=== PATIENT | female | born 1990 | race Caucasian/White ===

== ENCOUNTER 2018-06-25 13:34 | Emergency (ER) | payer MEDICAID ==
--- NOTE | 2018-06-25 13:44 | ER Report ---
History and Physical Time Seen By MD: 13:44 Hx. of Stated Complaint: patient states has a hemorrhoid that has been giving her problems since the weekend, patient states it is actively bleeding, had a "period size" amount in underwear when she woke up. HPI/ROS CHIEF COMPLAINT: Hemorrhoids HISTORY OF PRESENT ILLNESS: This is a 28 year female presents to the emergency department for hemorrhoids. Patient states that she's had intermittent problems with hemorrhoids since her son was born proximally 5 years ago. The patient states that over the last weekend she's had increased hemorrhoid pain, so much so that she is unable to sit comfortably. Patient states that she did see her PCP today they did make referral to Dr. Fowler's office, however she is unable to get into see him until at least August. Patient appears very uncomfortable. No fevers or chills. No nausea or vomiting. No chest pain or shortness of breath. REVIEW OF SYSTEMS: Respiratory: No cough, no dyspnea. Cardiovascular: No chest pain, no palpitations. Gastrointestinal: As above. Musculoskeletal: No back pain. Allergies: Coded Allergies: No Known Drug Allergies (Unverified , 06/25/18) Home Meds Reported Medications Medroxyprogesterone Acet 150 Mg (DEPO-PROVERA 150 MG) 150 Mg/1 Ml Disp.syrin, 150 MG IM [id number], DIS.SYR EVERY 3 MONTHS 06/25/18 Past Medical/Surgical History The patient has a past medical and surgical history of hemorrhoids. Hx Alcohol Use: No Constitutional Vital Sign - Last 24 Hours 06/25/18 06/25/18 06/25/18 06/25/18 13:36 13:49 14:00 14:04 Temp 97.7 Pulse 78 76 91 Resp 20 B/P (MAP) 132/86 110/73 (85) Pulse Ox 96 98 91 O2 Delivery Room Air Physical Exam General Appearance: The patient is alert, has no immediate need for airway protection and no current signs of toxicity. Eyes: Pupils equal and round no injection. Respiratory: Chest is non tender, lungs are clear to auscultation. Cardiac: regular rate and rhythm. Gastrointestinal: Abdomen is soft and non tender, no masses, bowel sounds normal. There is about a large left-sided hemorrhoid, red however does not appear to be thrombosed, nothing that would require draining. No blood noted at this time. Musculoskeletal: Neck: Neck is supple and non tender. Extremities have full range of motion and are non tender. Skin: No rashes or lesions. DIFFERENTIAL DIAGNOSIS: After history and physical exam differential diagnosis was considered for hemorrhoid. Medical Decision Making ED Course/Re-evaluation ED Course Patient was admitted to room. A history physical obtained. Differential diagnoses were considered. Upon examination of the patient's, there was a large hemorrhoid however nothing that appeared to be thrombosed, I did speak with Dr. Jeffery, he did not recommend trying to drain this at this time, would be better to decrease inflammation as this been ongoing for 5-[address] Fowler was also kind enough to pronounce a bowel regimen for the patient, she declined the paperwork at this time, she is very frustrated and uncomfortable. I did tell her that she can contact Dr. Fowler's office and see if she can get a cancellation. Appointments. I also recommended filling the steroid creams that her primary care provider prescribed for her. I did tell patient that she can come back at any time should she have any other concerns or worsening symptoms. Patient does have an appointment scheduled with Dr. Fowler at the end of this month to discuss the hemorrhoids. 06/25/2018 3:45:08 pm there is nothing boast at this time, I did speak with Dr. Fowler, he suggested a bowel regimen and to help with the hemorrhoids. I did review this with the patient, I did tell her that during this inflammatory phase there is no indication for an incision as there is nothing to drain at this time. Patient is very frustrated, I did encourage her to fill the steroid foam that was given to her by her primary care provider and use this to help with the inflammation and the discomfort. I also encouraged the patient to contact Dr. Roa's office to see if she get in with a cancellation appointment. Patient was frustrated and discharged home. Decision to Disposition Date: Jun 25, 2018 Decision to Disposition Time: 15:34 Depart Departure Latest Vital Signs Vital Signs Date Time Temp Pulse Resp B/P (MAP) Pulse Ox O2 Delivery O2 Flow Rate FiO2 06/25/18 14:04 91 91 06/25/18 14:00 110/73 (85) 06/25/18 13:36 97.7 20 Room Air Impression: Primary Impression: Hemorrhoids Condition: Improved Disposition: HOME OR SELF-CARE Referrals: LUCILA CRONIN MD Patient Instructions: Hemorrhoidectomy (DC), Hemorrhoids (ED) Additional Instructions: At this point with no thrombosis identified at this time there is little to do, I would not make an incision especially during this acute inflammatory period. You can try contacting Dr. Fowler office again to see if they can place you on a cancellation list. Try the steroid foam, this hopefully will help reduce some of the inflammation and discomfort here currently having. Return to the emergency for any concerns or worsening symptoms. Problem Qualifiers Primary Impression: Hemorrhoids Hemorrhoid type: unspecified Qualified Codes: K64.9 - Unspecified hemo rrhoids ALEIDA SANTOS [employer] Jun 25, 2018 13:44
[2018-06-25] MEDS ORDERED: MEDR150D IM (13:49)
[2018-06-25 14:00] VITALS: BP 110/73
== END 2018-06-25 15:47 | disposition home or self-care (01) ==
LOC: ER 13:34
DX: K64.9 Unspecified hemorrhoids (principal)
CPT/HCPCS: 99281